=== PATIENT | male | born 1995 ===

== ENCOUNTER 2022-06-06 11:28 | Outpatient (CLI) | payer BC | END 2022-06-06 11:29 | disposition home or self-care (01) | LOC: CSHLAB 11:28 | PROVIDERS: ATTEND Internal Medicine Gastroenterology | DX: Z20.822 Contact with and (suspected) exposure to COVID-19 (principal); K62.5 Hemorrhage of anus and rectum | CPT/HCPCS: 87811 ==

== ENCOUNTER 2022-06-09 11:28 | Day surgery (SDC) | payer BC ==
[2022-06-09] MEDS ORDERED: Hydrocortisone Sod Succ/PF 100 mg/2 ml Vial ONE ×2 (12:31→13:01)
[2022-06-09] MEDS ORDERED: Fentanyl 100 MCG/2 ML VIAL ONE (13:01)
[2022-06-09] MEDS ORDERED: PROPOFOL 60 ML ONE (13:01)
[2022-06-09] MEDS ORDERED: Lidocaine 1% MPF 2 ML VIAL ONE (14:54)
== END 2022-06-09 14:47 | disposition home or self-care (01) ==
LOC: CSHSDC 11:28
PROVIDERS: ATTEND Internal Medicine Gastroenterology
PROC: 0DJD8ZZ Inspection of Lower Intestinal Tract, Via Natural or Artificial Opening Endoscopic (ICD-10-PCS; principal; 2022-06-09)
PROC: 0DB68ZZ Excision of Stomach, Via Natural or Artificial Opening Endoscopic (ICD-10-PCS; principal; 2022-06-09)
DX: K62.5 Hemorrhage of anus and rectum (principal); K21.00 Gastro-esophageal reflux disease with esophagitis, without bleeding; K64.9 Unspecified hemorrhoids; K29.70 Gastritis, unspecified, without bleeding; E27.1 Primary adrenocortical insufficiency; Z88.0 Allergy status to penicillin; Z79.899 Other long term (current) drug therapy; Z20.822 Contact with and (suspected) exposure to COVID-19
CPT/HCPCS: 88305; J1720; J2704; J3010